=== PATIENT | male | born 1930 | race Caucasian/White ===

== ENCOUNTER → 2017-03-16 | Outpatient (CLI) | payer MEDICARE, OTHER ==
[~2017-03-16] MED LIST: AMLO10; SIMV20 PO; TOBR0.3S LEFT EYE
== END ==
LOC: PLAB 09:08
PROVIDERS: ATTEND Psychiatry & Neurology Neurology
DX: G64 Other disorders of peripheral nervous system (principal)
CPT/HCPCS: 36415; 82607

== ENCOUNTER → 2018-01-05 | Outpatient (CLI) | payer MEDICARE, OTHER | LOC: PLAB 06:39 | PROVIDERS: ATTEND Psychiatry & Neurology Neurology | DX: G64 Other disorders of peripheral nervous system (principal) | CPT/HCPCS: 36415; 82607 ==